=== PATIENT | male | born 1950 | race African-American/Black ===

== ENCOUNTER 2020-07-26 15:24 | Emergency (ER) | payer OTHER ==
[2020-07-26 15:37] VITALS: BP 130/67; PULSE 67; BMI 30.3
[2020-07-26] MEDS ORDERED: DIPHTH,PERTUSS(ACELL),TET 0.5 ML DISP.SYRIN IM ONE ×2 (15:55→16:32)
== END 2020-07-26 17:02 | disposition home or self-care (01) ==
LOC: JERFT 15:24
PROC: 0HQGXZZ Repair Left Hand Skin, External Approach (ICD-10-PCS; principal; 2020-07-26)
PROC: 3E0234Z Introduction of Serum, Toxoid and Vaccine into Muscle, Percutaneous Approach (ICD-10-PCS; 2020-07-26)
DX: S61.213A Laceration without foreign body of left middle finger without damage to nail, initial encounter (principal); S61.215A Laceration without foreign body of left ring finger without damage to nail, initial encounter
CPT/HCPCS: 73130-TC-LT-FY; 90715; 99284-25

== ENCOUNTER 2020-08-05 17:08 | Emergency (ER) | payer OTHER ==
[2020-08-05 17:39] VITALS: BP 137/76; PULSE 64; BMI 27.5
== END 2020-08-05 18:19 | disposition home or self-care (01) ==
LOC: JERFT 17:08 → JER 17:08 → JERFT 18:19
DX: Z48.02 Encounter for removal of sutures (principal)
CPT/HCPCS: 99282-25

== ENCOUNTER 2022-03-11 03:31 | Emergency (ER) | payer OTHER ==
[2022-03-11 04:18] VITALS: TEMP 98.7; BMI 27.3
[2022-03-11 05:07] LABS: BASO % 0.4 % (0-2.0); HEMATOCRIT 35.9 % (35.4-49); HEMOGLOBIN 12.3 GM/dL (11.7-16.9); LYMPH % 34.6 % (8-40); MCH 30.7 pg (25.7-33.7); MCHC 34.1 g/dl (32.0-35.9); MEAN CELL VOLUME 89.9 fl (80-96); MEAN PLT VOLUME 8.1 fl (7.5-11.1); PLATELET COUNT 236 10^3/uL (134-434); WHITE BLOOD COUNT 6.2 K/mm3 (4.0-10.0)
[2022-03-11 05:29] LABS: ALBUMIN 3.4 g/dl (3.4-5.0); CALCIUM 8.4 mg/dL (8.5-10.1)
[2022-03-11 05:30] LABS: BLOOD UREA NITROGEN 13.9 mg/dL (7-18)
[2022-03-11 05:32] LABS: CREATININE 1.2 mg/dL (0.55-1.3)
[2022-03-11 05:34] LABS: BILIRUBIN,TOTAL 0.5 mg/dL (0.2-1); TOT PROT 5.9 g/dl (6.4-8.2)
[2022-03-11] MEDS ORDERED: LIDOCAINE VISCOUS 2% ORAL/TOP 15 ML UNIT-DOSE CUP MM ONE (07:56)
[2022-03-11] MEDS ORDERED: LIDOCAINE VISCOUS 2% ORAL/TOP 15 ML UNIT-DOSE CUP ONE (08:07)
[2022-03-11 09:39] VITALS: BP 158/79; PULSE 56
== END 2022-03-11 09:39 | disposition home or self-care (01) ==
LOC: JER 03:31
DX: R07.89 Other chest pain (principal)
CPT/HCPCS: 36415; 70490-TC; 71046-TC-FY; 71250-TC; 80053; 84484; 85025; 93005; 93010; 99285-25

== ENCOUNTER 2023-03-17 05:37 | Day surgery (SDC) | payer OTHER ==
[2023-03-13 11:28] VITALS: BMI 30.7
[2023-03-17 10:58] VITALS: TEMP 97.7
[2023-03-17 11:45] VITALS: BP 139/64; PULSE 68; RESP 14
== END 2023-03-17 11:45 | disposition home or self-care (01) ==
LOC: JASU-ENDO 05:37
PROVIDERS: ATTEND Internal Medicine Gastroenterology
PROC: 0DB78ZX Excision of Stomach, Pylorus, Via Natural or Artificial Opening Endoscopic, Diagnostic (ICD-10-PCS; 2023-03-17)
PROC: 0DB68ZX Excision of Stomach, Via Natural or Artificial Opening Endoscopic, Diagnostic (ICD-10-PCS; 2023-03-17)
PROC: 0DB48ZX Excision of Esophagogastric Junction, Via Natural or Artificial Opening Endoscopic, Diagnostic (ICD-10-PCS; principal; 2023-03-17 10:45)
DX: K22.2 Esophageal obstruction (principal); K44.9 Diaphragmatic hernia without obstruction or gangrene; K29.50 Unspecified chronic gastritis without bleeding; K21.9 Gastro-esophageal reflux disease without esophagitis
CPT/HCPCS: 88305-TC; 88342-TC

== ENCOUNTER 2024-11-17 06:13 | Day surgery (SDC) | payer OTHER ==
[2024-11-14 13:23] VITALS: BMI 27.7
[2024-11-17] MEDS ORDERED: FENTANYL CITRATE/PF 50 MCG/ML VIAL ONE (07:39)
[2024-11-17] MEDS ORDERED: MIDAZOLAM HCL 2 MG/2 ML SINGLE DOSE VIAL ONE (07:39)
[2024-11-17] MEDS ORDERED: KETAMINE HCL 100 MG/ML - 5ML VIAL ONE (07:39)
[2024-11-17] MEDS ORDERED: ROPIVACAINE HCL/PF 100 MG/20 ML VIAL ONE (07:40)
[2024-11-17] MEDS ORDERED: PROPOFOL 20 ML ONE (07:50)
[2024-11-17] MEDS ORDERED: AMIODARONE HCL 150 MG/3 ML VIAL ONE (08:17)
[2024-11-17] MEDS ORDERED: ONDANSETRON 4 MG/2 ML VIAL IVPUSH PRN (09:14)
[2024-11-17] MEDS ORDERED: oxyCODONE HCL 5 MG TABLET PO PRN ×2 (09:14)
[2024-11-17] MEDS ORDERED: LACTATED RINGERS SOLUTION 1,000 ML IV SCH (09:15)
[2024-11-17] MEDS: KETOROLAC TROMETHAMINE 30 MG/1 ML VIAL IVPUSH SCH (09:16)
[2024-11-17] MEDS ORDERED: ACETAMINOPHEN INJECTION 100 ML ONE (09:18)
[2024-11-17] MEDS: ACETAMINOPHEN 1000 MG/100 ML BAG IVPB ONE (09:18)
[2024-11-17 09:57] VITALS: PULSE 70; RESP 18; TEMP 97.8
[2024-11-17] MEDS ORDERED: oxyCODONE HCL 5 MG TABLET ONE (11:33)
[2024-11-17 14:22] VITALS: BP 132/80
[2024-11-17] MEDS ORDERED: ACETAMINOPHEN 500 MG TABLET (FP) PO SCH (18:00)
== END 2024-11-17 14:45 | disposition home or self-care (01) ==
LOC: FASUSAT 06:13
PROVIDERS: ATTEND Student in an Organized Health Care Education/Training Program
PROC: 0SWDXJZ Revision of Synthetic Substitute in Left Knee Joint, External Approach (ICD-10-PCS; principal; 2024-11-17 07:55)
DX: M24.662 Ankylosis, left knee (principal); Z96.652 Presence of left artificial knee joint
CPT/HCPCS: 73560-TC-LT-FY; 82962; 94760; J0131

== ENCOUNTER 2025-02-13 06:02 | Day surgery (SDC) | payer OTHER ==
[2025-02-10 11:58] VITALS: BMI 27.6
[2025-02-13 12:12] VITALS: TEMP 98.2
[2025-02-13 12:53] VITALS: RESP 17
[2025-02-13 14:57] VITALS: BP 141/75; PULSE 58
== END 2025-02-13 14:45 | disposition home or self-care (01) ==
LOC: JASU-ENDO 06:02
PROVIDERS: ATTEND Internal Medicine Gastroenterology
PROC: 0DBH8ZX Excision of Cecum, Via Natural or Artificial Opening Endoscopic, Diagnostic (ICD-10-PCS; 2025-02-13)
PROC: 0DBL8ZX Excision of Transverse Colon, Via Natural or Artificial Opening Endoscopic, Diagnostic (ICD-10-PCS; 2025-02-13)
PROC: 0DBN8ZX Excision of Sigmoid Colon, Via Natural or Artificial Opening Endoscopic, Diagnostic (ICD-10-PCS; 2025-02-13)
PROC: 0DBP8ZX Excision of Rectum, Via Natural or Artificial Opening Endoscopic, Diagnostic (ICD-10-PCS; 2025-02-13)
PROC: 0DBN8ZX Excision of Sigmoid Colon, Via Natural or Artificial Opening Endoscopic, Diagnostic (ICD-10-PCS; principal; 2025-02-13 11:00)
DX: D12.3 Benign neoplasm of transverse colon (principal); D12.8 Benign neoplasm of rectum; K63.5 Polyp of colon; K64.8 Other hemorrhoids; K57.30 Diverticulosis of large intestine without perforation or abscess without bleeding
CPT/HCPCS: 82962; 88305-TC